=== PATIENT | female | born 1995 | race Caucasian/White ===

== ENCOUNTER 2018-06-17 12:45 | Emergency (ER) | payer MEDICAID ==
[~2018-06-17] VITALS: Ht 167.6 cm; Wt 59.1 kg
[2018-06-17 12:55] VITALS: Ht 167.6 cm; Wt 59.1 kg
[2018-06-17] MEDS ORDERED: CLEOCIN HCL300 MG PO (16:21)
[2018-06-17] MEDS ORDERED: TORADOL10 MG PO (16:21)
[2018-06-17 16:48] VITALS: BP 111/74
== END 2018-06-17 16:50 | disposition home or self-care (01) ==
LOC: D.ER 12:45
DX: K08.89 Other specified disorders of teeth and supporting structures (principal); K05.20 Aggressive periodontitis, unspecified; F17.200 Nicotine dependence, unspecified, uncomplicated

== ENCOUNTER 2019-02-03 11:11 | Emergency (ER) | payer SELFPAY ==
[~2019-02-03] VITALS: Ht 167.6 cm; Wt 56.8 kg
[~2019-02-03 11:11] MED LIST: CLEOCIN HCL300 MG PO; TORADOL10 MG PO
[2019-02-03 11:14] VITALS: Ht 167.6 cm; Wt 56.8 kg
[2019-02-03] MEDS ORDERED: ATIVAN1 MG PO (11:18)
[2019-02-03] MEDS ORDERED: AUGMENTIN 875-11 TAB PO (11:41)
[2019-02-03] MEDS ORDERED: TYLENOL W/CODEI1 TAB PO (11:41)
[2019-02-03 12:37] VITALS: BP 130/54
== END 2019-02-03 12:37 | disposition home or self-care (01) ==
LOC: D.ER 11:11
DX: K04.7 Periapical abscess without sinus (principal)